=== PATIENT | female | born 1930 | race Caucasian/White ===

== ENCOUNTER 2021-01-12 09:33 | Inpatient (IN) | payer MEDICARE, OTHER ==
[~2021-01-12] VITALS: Ht 167.6 cm; Wt 61.2 kg
[~2021-01-12 09:33] MED LIST: ACETAMINOPHEN325 M1 PO; LEVOTHYROXINE100 MCG PO; LIDODERM700 MG TOP; NORCO 5-325 TA1 EACH PO
--- NOTE | 2021-01-12 14:19 | NUR ---
STOPPED TO SEE PATIENT BUT SHE IS IN OR.
--- NOTE | 2021-01-12 14:33 | NUR ---
01/12/21 1433 Carol Edwards 1428- PT ARRIVES TO PACU NONAROUSABLE TO NOXIOUS STIMULI. RESP EVEN AND UNLABORED. OXYGEN SAT HIGH 90'S TO 100% ON 6L VIA MASK. ICE PACK APPLIED TO PT'S LEFT HIP WITH DRESSING IN BETWEEN SKIN AND ICE PACK.
--- NOTE | 2021-01-12 15:15 | NUR ---
PT ARRIVED BACK FROM [facility] VIA BED. THIS RN RECEIVED REPORT FROM NIKI MERA. PT AWAKE ON ROOM AIR AND STATES THAT SHE HAS NO PAIN AT THIS TIME. 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 PT FORGETFUL, PT STATES THAT THIS IS NORMAL FOR HER PITT CATHETER IN PLACE AND FLUIDS STARTED. SLIGHT SHADOWING ON DRESSING
--- NOTE | 2021-01-12 16:23 | NUR ---
THIS RN IN PTS ROOM TO DO PTS POST OPP CHECK. PT STILL CONFUSED AND FORGETFUL IF HER DOG CAN COME IN OR NOT. PT ALSO FIXATED ON GETTING HER CHARGNING CABLE. PT STATES THAT SHE HAS NO PAIN AND THE SHADOWING ON HER APICOAT DRESSING HAS NOT CHANGED
[2021-01-12] MEDS ORDERED: BUFFERIN 325 M325 MG PO (17:08)
--- NOTE | 2021-01-12 17:08 | NUR ---
MED REC COMPLETE
--- NOTE | 2021-01-12 17:24 | EKG ---
[facility] [address] [facility] [place], [place] [address] Signed Normal sinus rhythm Minimal voltage criteria for LVH, may be normal variant Cannot rule out Anterior infarct , age undetermined Abnormal ECG No previous ECGs available Confirmed by MONE MARK DO ([id number]) on 01/12/2021 5:24:09 PM Electronically Signed By: MONE MARK DO 01/12/21 1724 PATIENT NAME: JENNIFER MALIN Electrocardiogram DATE OF : [birth year] PHYSICIAN: MONE MARK DO REPORT #: [id number] REPORT IS CONFIDENTIAL AND NOT TO BE RELEASED WITHOUT AUTHORIZATION
--- NOTE | 2021-01-12 17:25 | NUR ---
Per telephone order Dr Callahan, begin ASA EC 325mg BID tonight
--- NOTE | 2021-01-12 17:29 | NUR ---
THIS RN IN PTS ROOM TO DO PTS POST OPP CHECK. PT STATES THAT HER PAIN IS WELL CONTROLLED AND THAT SHE IS READY FOR SOME DINNER. PT HAS REGAINED FEELING UP TO HER HIPS AT THIS TIME AFTER RECIEVEING A SPINAL FOR SURGERY. PT STILL CONFUSED AND FORGOT THAT SHE HAD SURGERY TODAY. PTS SHADOWING HAS HAD NO CHANGE, THIS RN OUTLINED SHADOWING
--- NOTE | 2021-01-12 19:13 | NUR ---
RECEIVED REPORT FROM SAMARIA VARELA. pt RESTING IN BED. REPEATING QUESTIONS. NO REQUESTS AT THIS TIME. NO NEW DRAINAGE NOTED ON DRESSING. SCDS, AES, AND HEEL PROTECTORS ON. ICE ON LEFT HIP. CURTAIN OPEN TO THE NURSES STATION. CALL LIGHT WITHIN REACH.
--- NOTE | 2021-01-12 20:30 | NUR ---
IN TO DO ASSESSMENT AND MEDICATIONS. pt VERY TALKATIVE. CONCERNED ABOUT HER DOG. DENIED PAIN WHEN AT REST, SOME GRIMACING WITH MOVEMENT. SCHEDULED MEDICATIONS GIVEN (SEE MAR). NO CHANGES IN DRESSING. pt CONFUSED AT TIMES BUT ORIENTED TO SELF AND PLACE.
--- NOTE | 2021-01-12 22:30 | NUR ---
IN TO GIVE MEDICATIONS. pt WOKE TO VOICE. VERY CONFUSED REQUIRED 20 PLUS MINUTES OF REASSURANCE. REMINDED pt SHE HAD SURGERY AND HER LEFT HIP WOULD BE PAINFUL. pt REMEMBERED THE FALL BUT NOT WHERE SHE WAS. DID TAKE PAIN MEDICATION. NO PAIN AT REST, DOES HAVE PAIN WHEN MOVING. CURTAIN OPEN TO THE NURSES STATION. BED ALARM ON.
--- NOTE | 2021-01-13 00:03 | NUR ---
pt VISUALIZED THROUGH THE DOOR. RESTING IN BED WITH EYES CLOSED, RESPIRATIONS REGULAR AND UNLABORED. BED ALARM ON.
--- NOTE | 2021-01-13 02:41 | NUR ---
IN TO GIVE MEDICATION. pt RATED PAIN 0/10 AND REFUSED PAIN MEDICATION AT THIS TIME. STATED "I'LL ASK FOR IT WHEN IT HURTS" PAIN MANAGEMENT EDUCATION DONE. pt CONFUSED, REPEATING QUESTIONS. NO CHANGE IN ASSESSMENT FROM PRIOR. NO NEW SHADOWING DONE. CALL LIGHT WITHIN REACH. BED ALARM ON. CURTAIN OPEN TO NURSES STATION.
--- NOTE | 2021-01-13 04:22 | NUR ---
pt GESTURING FOR THIS RN. TALKED FOR 30 MINUTES OR SO. pt REMAINS PLEASANTLY CONFUSED. CALL LIGHT WITHIN REACH. BED ALARM ON. CURTAIN OPEN TO NURSES STATION.
--- NOTE | 2021-01-13 06:49 | NUR ---
UPDATED PROVIDER ON pt . OKAY TO KEEP IV OUT AT THIS TIME.
--- NOTE | 2021-01-13 07:59 | NUR ---
Patient awake in bed talking with PARBOILER. Patient is pleasant and disoriented to place and situation. Left hip dressing is CDI, a couple small dry blood spots noted. CMS intact. ALLISON hose in place. No IV at this time. Patient is a 1:1 at this time as she is confused. Close to RN station for observation. Breakfast ordered at this time.
--- NOTE | 2021-01-13 09:20 | NUR ---
Spoke with Julia and discussed placement as she will be NWB x 6 weeks. Pt had difficulty understanding and several times asked why she would need to go to a SNF. Gently reminded several times she has fx of her hip with repair. Sister Jocelyn arrives and we discussed. She also attempted to explain why she needs to go to a SNf. Pt could not decide which SNF she would like to go to. Sister states to go to [facility] first and [facility] second. Called [facility] and they do not have bed availability. Called [facility] and they do have a bed open. Chart faxed and they will let me know if they can accept tomorrow. Spoke with Lori Mayer and she states pt could go tomorrow. Will plan for dc tomorrow if all goes well. Pt updated to above and she again is confused why she would need a SNF. Explained all. Attempted to call sister x 3 to update pt will go to [facility]. She does not have voice mail and does not answer phone.
--- NOTE | 2021-01-13 09:56 | NUR ---
PT SITTING UP IN BED TALKING WITH TAMIA FROM CASE MGMT. VS AND I&O'S HAVE BEEN TAKEN AND DOCUMENTED. PT HAS NO NEEDS OR CONCERNS AT THIS TIME. WILL CONTINUE TO MONITOR.
--- NOTE | 2021-01-13 13:23 | NUR ---
UA sent to lab.
--- NOTE | 2021-01-13 13:30 | NUR ---
Left hip dressing replaced with new Acticoat as patient removed her dressing. Patient has continued confusion and reports she forgot she had surgery. Patient a 1:1 at this time. Bed alarm intact and close to RN station. Left anterior hip incision closed, marcie intact with scant sarosang drainage. New acticoat placed; CDI.
--- NOTE | 2021-01-13 13:38 | NUR ---
PATIENT IN BED AND SLIGHTLY CONFUSED. VITALS AND I&O'S CHARTED. FRESH WATER GIVEN. CALL LIGHT IN REACH. BED ALARM ON. NO FURTHER NEEDS AT THIS TIME.
--- NOTE | 2021-01-13 14:43 | NUR ---
Rachid DC IN WORKING WITH PT. WILL CHECK BACK
--- NOTE | 2021-01-13 16:05 | NUR ---
Patient is doing well at this time visiting with SAMARIA Davis. Close to RN station. No needs at this time.
--- NOTE | 2021-01-13 16:13 | NUR ---
Pt's sister, Shantelle, returned called. UPdated no beds at [facility] and [facility] did accept and will transport. She will call her sister later and see if she understands. Shantelle states she won't return today or tomorrow as she had covid this year and does not tolerate activity. I asked if she would like the phone number for [facility] and she declined. She also states pt does not have any children or relatives other than herself. Updated Ly had asked I call Juanita Jevon her old neighbor and let her know she was going to a SNF. I attempted to call, and left a message on Juanita's answer machine.
--- NOTE | 2021-01-13 17:21 | NUR ---
Patient reports left hip pain. Scheduled Ultram and tylenol provided. Patient remains a 1:1 for close observation. Patient oriented to self.
--- NOTE | 2021-01-13 17:23 | NUR ---
Patient reports left hip pain. Scheduled Ultram and aspirin provided.
--- NOTE | 2021-01-13 18:20 | NUR ---
Patient tolerated dinner well. Pt repositioned in bed, warm blanket provided and lights dimmed to encuorage rest time. Pt reports she is tired and ready to sleep. Bed alarm intact and close to RN station.
--- NOTE | 2021-01-13 19:38 | NUR ---
RECEIVED REPORT FROM DAY SHIFT RN. PATIENT IS RESTING IN BED. RN REMAINS IN ROOM WITH PATIENT 1 ON 1. PATIENT IS CONFUSED. PATIENT DENIES ANY PAIN. NO NEEDS NOTED. CALL LIGHT IN REACH.
--- NOTE | 2021-01-13 21:53 | NUR ---
PATIENT ASSESMENT COMPLTED. PATIENT COMPLAINS OF DISCOMFORT IN YOUR HIP. PATIENTS EVENING MEDICATIONS GIVEN PER ORDER. PATIENT GIVEN SCHEDULED MEDICATION FOR PAIN. PATIENTS DRESSING ON LEFT HIP IS C/D/I. PATIENT IS ON RA. VITALS TAKEN AND RECORDED. PITT EMPTIED. INTAKE AND OUPUT RECORDED. PATIENT HAS SCDS, HEEL PROTECTORS, AND TEDHOSE IN PLACE. ICE PLACED ON LEFT HIP. ICE PLACED ON LEFT HIP. PATIENT IS CONFUSED AND REQUIRES CONTINUOUS REORIENTING. PATIENT HAS RN IN ROOM TO SIT 1 ON 1 WITH PATIENT FOR PATIENT SAFETY. NO OTHER NEEDS NOTED. CALL LIGHT IN REACH.
--- NOTE | 2021-01-13 23:39 | NUR ---
PATIENT IS RESTING IN BED. PATIENT IS RESTING ON AND OFF. WHEN PATIENT AWAKENS SHE REQUIRES REORIENTING THEN FALLS BACK ASLEEP. PATIENT REQUIRES 1 ON 1 STILL, RN REMAINS IN THE ROOM.
--- NOTE | 2021-01-14 01:09 | NUR ---
PATTIENT IS RESTING IN BED. PATIENT REMAINS CONFUSED AND SLEEPING ON AND OFF. PATIENT DENIES ANY PAIN. BONSAI CULTURIST IS IN RROM NOW WITH PATIENT WHO REMAINS A 1 ON 1.
--- NOTE | 2021-01-14 01:57 | NUR ---
UPDATED MARS, BASED ON PROGRESS NOTE 01/13/2021 JONNA GUERRA, REGARDING IV STATUS. PT CONTINUES TO BE CONFUSED TO PLACE, TIME. REQUIRING 1:1 SUPERVISION WITH CONSTANT REASSURING, ORIENTATING.
--- NOTE | 2021-01-14 02:12 | NUR ---
PATIENT HAS BECOME INCREASINGLY AGITATED AND COMBATIVE. PLACED CALL TO MD. RECEIVED TELEPHONE ORDER FOR NEW MEDICATION SEE EMAR. VERIFIED ORDER USING THE READBACK METHOD. RN REMAINS ON THE ROOM WITH PATIENT.
--- NOTE | 2021-01-14 03:41 | NUR ---
PATIENT IS NOW RESTING IN BED. PATIENT IS ABLE TO REST IN 10 MINUTE INCREMENTS. WHEN SHE AWAKENS SHE INSULTS STAFF THEN FALLS BACK ASLEEP. RN REMAINS IN THE ROOM 1
--- NOTE | 2021-01-14 05:02 | NUR ---
PATIENT IS RESTING IN BED WITH EYES CLOSED, RR 16. CALL LIGHT IN REACH. RN REMAINS IN THE ROOM FOR 1 ON FOR PATIENT SAFETY. NO NEEDS NOTED.
--- NOTE | 2021-01-14 05:03 | NUR ---
PATIENT DID NOT REST WELL DURING THIS SHIFT. PATIENT IS ON A REGULAR DIET TOLERATING WELL, NO COMPLAINTS OF NAUSEA. PATIENT HAS A PITT IN PLACE, OUPUT IS QS. PATIENT HAS NO IV AT THIS TIME. PATIENT HAS SCDS AND HEEL PROTECOTRS IN PLACE WHEN PATIENT ALLOWS. PATIENT HAS TEDHOSE ON BILAT LOW EXT. PATIENT IS ON RA. PATIENT HAS DRESSING ON LEFT HIP THAT IS C/D/I. PATIENT ONLY ALLOWS ICE ON HIP SOMTIMES, BUT WHEN SHE GETS UPSET SHE THROWS ICE PACK AT STAFF. PATIENT HAS PT AND CASE MANAGEMENT CONSULT. PATIENT IS NON WEIGHT BEARING ON LEFT LOW EXT. PATIENT IS CONFUSED AND BECOMES AGITATED AT TIMES. PATIENT HAS YELLED AT STAFF AND TRIED TO HIT STAFF. PATIENT IS A 1 ON 1 FOR PATIENT SAFETY.
--- NOTE | 2021-01-14 05:53 | NUR ---
PATIENT IS STILL CONFUSED BUT IS NO LONGER COMBATIVE WITH STAFF. PATIENT REMAINS A 1 ON 1. PATIENT WAS ABLE TO TAKE MORNING MEDICATION PER ORDER. PATIENT REPOSTIIONED IN BED.
--- NOTE | 2021-01-14 07:00 | NUR ---
PATIENT IS RESTING IN BED WITH EYES CLOSED, RR 17. RN REMAINS IN THE ROOM. SOBEIDA INTO SEE PATIENT. UPDATED HER ON PATIENT. DID NOT WAKE PATIENT FOR VITALS MD AWARE.
--- NOTE | 2021-01-14 07:07 | OR ---
[facility] [address], [place] [address] Signed DATE OF OPERATION: 01/12/2021 SURGEON: Edy Callahan MD PREOPERATIVE DIAGNOSIS: Left intertrochanteric hip fracture. POSTOPERATIVE DIAGNOSIS: Left intertrochanteric hip fracture. PROCEDURE PERFORMED: Open reduction and internal fixation of left hip. FINE ARTS TEACHER: None. ANESTHESIA: Spinal. ESTIMATED BLOOD LOSS: 150 mL. IMPLANTS: Synthes 4-hole DHS 135 degrees, 95 mm lag screw and four screws distally. BRIEF HISTORY: Julia is an 89-year-old female, who slipped and fractured her hip. The patient was transferred to the hospital. Radiographs revealed a minimally displaced intertrochanteric hip fracture. Risks and benefits of operative treatment were discussed with her after medical clearance, and she elected to proceed. DESCRIPTION OF PROCEDURE: Once consent was obtained, she was taken to the operating room. After adequate anesthesia, she was placed on the fracture table. The nonoperative leg was placed in a foot horowitz and extended and adducted. The reduction maneuver was performed on the left leg and the image intensifier was brought in. Radiographs showed the hip to be well reduced. The hip was then prepped and draped in a standard sterile fashion. A 4-inch incision was made laterally, carried through skin and IT band and down to the vastus. The vastus was then split longitudinally and the lateral femur was cleared. The 135 DHS guide was then placed on the lateral femur and centered and the guide pin was advanced Electronically Signed By: EDY CALLAHAN MD 01/14/21 0707 PATIENT NAME: JULIA MALNI OPERATIVE REPORT DATE OF : [birth year] REPORT #: [id number] PHYSICIAN: EDY CALLAHAN MD PCP: BRYANT MORALES MD REPORT IS CONFIDENTIAL AND NOT TO BE RELEASED WITHOUT AUTHORIZATION [facility] [address] [place], [place] [address] Signed from the lateral femur across the femoral neck into the head. Good position was ascertained on biplanar fluoroscopy. We then measured it to a 95 and triple reamed it. Once this was completed, the guide pin was left in position and DHS lag screw was placed over it and advanced until it was well-seated in the femoral head. We then placed the four-hole 135 DHS over the screw and impacted until it was flushed with the lateral femur and centered. The four distal screws were then drilled and appropriate length screws were placed. The final radiograph showed good position of the DHS. The screw lengths were appropriate. The lag screw was in good position. The wound was copiously irrigated with antibiotic solution. The fascia was closed using #0 StrataFix, the subcutaneous tissue with #0 StrataFix, and skin with marcie. The wound was then dressed with an Acticoat dressing and she was taken out of traction, taken off the table and taken to the recovery room in satisfactory condition. All sponge, needle, and instrument counts correct. Edy Callahan MD BA/CHERI /[id number] Copies: ~ Electronically Signed By: EDY CALLAHAN MD 01/14/21 0707 PATIENT NAME: KIMOJULIA CAMILA OPERATIVE REPORT DATE OF : [birth year] REPORT #: [id number] PHYSICIAN: EDY CALLAHAN MD PCP: BRYANT MORALES MD REPORT IS CONFIDENTIAL AND NOT TO BE RELEASED WITHOUT AUTHORIZATION
--- NOTE | 2021-01-14 07:22 | NUR ---
Recieved text from Lori Mayer Pa-c, pt will not dc today due to increased fall risk from confusion. [facility] notified.
--- NOTE | 2021-01-14 07:45 | NUR ---
Patient sleeping at this time, respirations even and non labored. Patient has no notable distress. Bed alarm intact, pt close to RN station.
--- NOTE | 2021-01-14 09:27 | NUR ---
PATIENT AWAKE IN BED, OB RN AT BEDSIDE FOR SAFETY. VITALS AND I&OS CHARTED. PITT EMTIED. REFUSED BREAKFAST. PATIENT CONFUSED BUT COOPERATIVE TO VITALS BEING DONE. NO OTHER NEEDS AT THIS TIME
--- NOTE | 2021-01-14 09:30 | NUR ---
This RN attempted and encouraged patient several times to take her scheduled medications; pt refused and requested I leave room at this time. Patient agitated with staff and thinks she is in her apartment. Patient reoriented to place and situation. Patient continues to be a 1:1 and close to RN station.
--- NOTE | 2021-01-14 10:00 | NUR ---
Slade removed per provider order. Catheter tip intact. Patient tolerated well. Shana pad placed at this time. Patient remains a 1:1 at this time.
--- NOTE | 2021-01-14 12:25 | NUR ---
Patient sleeping, respirations even and non labored. No notable distress. Patient remains a 1:1 and close to RN station. Call light within reach.
--- NOTE | 2021-01-14 13:26 | NUR ---
Patient awake, sitting up in bed eating lunch. Patient slept approximately 5hrs. Lunch to patient, lights on and coffee provided. No needs at this time. Close to RN station, bed alarm intact.
--- NOTE | 2021-01-14 15:50 | NUR ---
Notified by RN, pt's granddaughter is in the room and would like a visit. In to room and clarified with visitor she is not the granddaughter as pt has not been and does not have children. Visitor states she is an old neighbor and helps pt when needed. She is Dalia Escoto, a friend the pt had me call yesterday. Pt remains forgetful and is forgetful during our conversation. Dalia is wanting to know who made the decision for pt to go to [facility]. I asked Julia if I may give information to Dalia and she does recognize and states yes. UPdate I attempted to place in T, they do not have rooms. Patient and her sister requested closest SNF to this area which is [facility]. Discussed with Dalia if she does not have POA she is unable to speak for Julia. She is aware of this and states she does not have anything in writing and has helped Julia for a long time. I suggested she call, Shantelle, pts sister for questions. She states she will bring clothing for Julia to use at SNF. pts sister
--- NOTE | 2021-01-14 16:21 | NUR ---
covid swab collected ,sent to [facility] for rapid testing, no complications
--- NOTE | 2021-01-14 16:37 | NUR ---
Patient resting in bed, eyes closed, respirations even and non labored. Patient has no notable distress. Personal supplies and call light within reach. Close to RN station.
--- NOTE | 2021-01-14 16:43 | NUR ---
Received call from Nuha Banks, pt's niece. She states she and pt's nephew have not been able to visit as he has covid and she is on quarantine. She states Shantelle has updated her and she has concerns for Kassie. Updated patient is going to [facility] tomorrow. She states concern as pt has been having increased confusion for some time. She does not feel she will be able to return to [facility]. Pt lives on her SSI and does not own any property or cars. Instructed on how to contact [facility] and phone number given. Requested she call Yue Noel the worker of the day and provide information. Ask for an eval for rn long term care medicaid. They may be able to assist her with placement or a cg. Also notified this is a long process and can take up to 45 days. Nuha states she will contact [facility].
--- NOTE | 2021-01-14 17:47 | NUR ---
Patient awake, alert to self only. Patient reports she is at "[facility]", reorientation provided. Dinner to patient, she is eating well. Recently voided; q/s urine output. Left hip dressing remains CDI. Scd's intact. Patient took medications with dinner without difficulty. Bed alarm intact.
--- NOTE | 2021-01-14 19:20 | NUR ---
PATIENT IS RESTING IN BED WITH EYES CLOSED, RR 16. CALL LIGHT IN REACH. BED ALARM ON FOR SAFETY.
--- NOTE | 2021-01-14 21:20 | NUR ---
V/S AND I&O'S TAKEN AND RECORDED. THIS RIP TAILER AND PRIMARY RN HARRISON HELPED PATIENT UP TO USE THE BEDSIDE COMMODE. PATIENT HAD BOWEL MOVEMENT AND VOIDED. PATIENT IS BACK IN BED. PATIENT TOLERATED GOOD STANDING UP USING WALKER. PATIENT IS TALKATIVE AND SENSIBLE ON COMMNUNICATING WITH US STAFF. BED ALARM ON FOR SAFETY. SCD'S ON.
--- NOTE | 2021-01-14 21:50 | NUR ---
PATIENT ASSISTED TO THE BSC. PATIENT WAS ABLE TO PIVOT TRANSFER W/FWW AND 2PA. PATIENT NEEDED REMINDING TO NOT PUT WEIGHT ON HER LLE. PATIENT WAS BALE TO VOID AND HAD X1 BM. PATIENT IS NOW BACK IN BED RESTING. SCDX IN USE. PATIENTS VITALS TAKEN AND RECORDED. INTAKE AND OUPUT REOCRDED. PATIENT RATES PAIN AT A 5/10. PATIENT GIVEN SCHEDULED PAIN MEDICATION AND HER EVENING MEDICATIONS PER ORDER. PATIENT GIVEN FRESH ICE WATER. PATIENT PROVIDED WITH A WARM BLANKET. PATIENT IS PLEASANTLY CONFUSED. PATIENT IS NOW RESTING IN BED COMPETEING A CROSSWORD PUZZLE. PATIENTS DRESSING ON L HIP IS C/D/I. NO FUTHER NEEDS NOTED. CALL LIGHT IN REACH. BED ALARM ON FOR SAFETY.
--- NOTE | 2021-01-14 22:38 | NUR ---
PATIENT IS RESTING IN BED WITH EYES CLSOED, RR 16. CALL LIGHT IN REACH. BED ALARM ON FOR SAFETY.
--- NOTE | 2021-01-14 23:44 | NUR ---
PATIENT IS RESTING IN BED WITH EYES CLSOED, RR 17. CALL LIGHT IN REACH. BED ALARM ON FOR SAFETY.
--- NOTE | 2021-01-15 01:08 | NUR ---
PATIENT IS RESTING IN BED WITH EYES CLOSED, RR 16. CALL LIGHT IN REACH. BED ALARM ON FOR SAFETY.
--- NOTE | 2021-01-15 02:20 | NUR ---
2 PA UP TO BEDSIDE COMMODE USING WALKER. PATIENT HAD BOWEL MOVEMENT AND URINE. PATIENT IS BACK IN BED. BED ALARM ON FOR SAFETY. SCD,S ON.
--- NOTE | 2021-01-15 02:36 | NUR ---
PATIENT ASSISTED TO THE BSC A 1PA W/FWW. PATIENT WAS ABLE TO VOID AND HAVE LOOSE BM. PATIENT PUT LEGS BACK INTO BED WITHOUT ASSISTANCE. PATIENTS SCDS IN USE. PATIENTS SCHEDULED PAIN MEDICATION GIVEN PER ORDER. PATIENT STATED THAT HER LEG WAS ONLY PAINFUL WITH MOVEMENT. PATIENT PROVIDED WITH FRESH ICE WATER. NO FURTHER NEEDS NOTED. CALL LIGHT IN REACH. BED ALARM ON FOR SAFETY.
--- NOTE | 2021-01-15 03:18 | NUR ---
PATIENT IS RESTING IN BED WITH EYES CLOSED, RR 16. CALL LIGHT IN REACH. BED ALARM ON FOR SAFETY.
--- NOTE | 2021-01-15 04:30 | NUR ---
1-2 PA. PATIENT WAS UP TO BSC. PATIENT IS BACK IN BED. ICE PACK MADE FOR LEFT HIP. BED ALARM ON FOR SAFETY. CALL LIGHT WITHIN REACH.
--- NOTE | 2021-01-15 04:38 | NUR ---
PATIENT ASSSISTED TO THE RESTROOM A 1PA W/FWW. PATIENT WAS ABLE TO TRANSFER TO [facility]. PATIENT WAS ABLE TO VOID. PATIENT IS BACK IN BED RESTING. PATIENT HAS SCDS IN USE. PATIENT PROVIDED WITH ICE PACK TO HIP AND FRESH ICE WATER. NO FURTHER NEEDS NOTED. CALL LIGHT IN REACH. BED ALARM ON FOR SAFETY.
--- NOTE | 2021-01-15 04:43 | NUR ---
PATIENT RESTED WELL THROUGHOUT THE SHIFT. PATIENT IS ON A REGULAR DIET, TOLERATING IT WELL, AND NO COMPLAINTS OF NAUSEA REPORTED. PATIENT IS ON RA. SCDS, TEDHOSE, AND HEEL PROTECTORS IN USE. PATIENT HAS NO IV. PATIENT IS LEFT ARM RESTRICTED. DRESSING PRESENT ON LEFT HIP AND IS C/D/I. PATIENT HAD X2 BMS. PATIENT IS A 1PA W/FWW. PATIENT IS TOE TOUCH WEIGHT BEARING ON LLE. PATIENT IS PLEASANTLY CONFUSED. PATIENT IS EASILY REORIENTED. PATIENTS PAIN HAS BEEN WELL MANAGED WITH SCHEDULED PAIN MEDICATION. PATIENT DOES NOT ALWAYS REMEMBER TO USE THE CALL LIGHT, THEREFORE BED ALARM IS ON FOR SAFETY.
--- NOTE | 2021-01-15 07:15 | NUR ---
Report from Angelic Shepard RN. Patient lying in bed on back. Eyes closed, respirations even and unlabored. Allowed to rest. Call light in reach, bed rails up, bed alarm activated.
[2021-01-15] MEDS ORDERED: TRAMADOL HCL50 MG PO (07:49)
--- NOTE | 2021-01-15 08:49 | NUR ---
ASSIST INTO RECLINER WITH 2 PERSON ASSIST AND WALKER. ASSESSMENT COMPLETED. STATES PAIN IS CURRENTLY 5/10 AT THIS TIME. SCHEDULED MEDICATIONS GIVEN PRESCRIBED. DENIES OTHER NEEDS AT THIS TIME. DID HAVE SOME DIFFICULTY WITH SWALLOWING ONE MEDICATION, USED APPLESAUCE. SHE THEN SWALLOWED IT WITH EASE. DENIES OTHER NEEDS AT THIS TIME. CALL LIGHT IN REACH.
--- NOTE | 2021-01-15 09:00 | NUR ---
Orders completed by Tran Ashley.Orders faxed to Jie at [facility]. Called to confirm orders and grain picker time. Notified by Jie, Rn had noted pt required 1:1 sitter on 01/13 during the night and into the morning of the 01/14. Their policy is the patient needs to be 48 hours without a sitter for safety reasons. They cannot accept this pt until tomorrow. I will update Tran MOREIRA. Pt has cleared mentally and has had a good night. Called family and updated pt will stay today and possibly go to [facility] tomorrow. Received call from friend Juanita and she has spoken with Nuha, pt's niece and will bringing clothing and toiletries to take to the SNF.
--- NOTE | 2021-01-15 11:07 | NUR ---
SITTING IN RECLINER WITH LEGS ELEVATED, EYES SHUT, RESPIRATIONS EVEN AND UNLABORED. ALLOWED TO REST. CALL LIGHT IN REACH, CHAIR ALARM IN PLACE.
--- NOTE | 2021-01-15 13:24 | NUR ---
PT ASLEEP. SAMARIA BARRERA REQUESTED I NOT DISTURB PT AT THIS TIME. WILL FOLLOW
--- NOTE | 2021-01-15 16:55 | NUR ---
Patient verbalizes desire to stay in facility and not another. Informed multiple times throughout day plan of care and becomes very emotional at times. Also verbalizes worry about her pet dog and wanting to see it, but has no one willing to bring it to see her. States she is concerned about not returning home either. Let patient voice her concerns.
--- NOTE | 2021-01-15 18:17 | NUR ---
Concerned about DC plan throughout day today. Pain controlled with scheduled medications. Denies pain when not moving. Pivot transfers to commode with 1-2 person assist and walker. Dressing to left hip intact. Minimal edema to site. Continues to work with PT>
--- NOTE | 2021-01-15 19:21 | NUR ---
RECEIVED REPORT FROM DAY SHIFT RN. PATIENT IS RESTING IN RECLINER. NO NEEDS NOTED. CALL LIGHT IN REACH.
--- NOTE | 2021-01-15 19:30 | NUR ---
IN TO ASST PT UP TO VOID, 1PA FWW AND BACK TO BED, VITALS DONE
--- NOTE | 2021-01-15 20:15 | NUR ---
PATIENT ASSISTED TO THE RESTROOM BY AKHIL. PATIENT IS NOW BACK IN BED RESTING. PATIENT REPORTS 5/10 PAIN. PATIENT GIVEN SCHEDULED PAIN MEDICATION. PATIENTS VITALS TAKEN AND RECORDED. PATIETNS INTAKE AND OUPUT RECORDED. PATIENTS RESTING IN BED WITH SCDS IN USE. ICE PACK PLACED ON LEFT HIP. FRESH ICE WATER PROVIDED. PATIENTS BED ALARM PLACE ON FOR SAFETY. NO FURTHER NEEDS NOTED. CALL LIGHT IN REACH.
--- NOTE | 2021-01-15 23:00 | NUR ---
PATIENT IS RESTING IN BED WITH EYES CLOSED, RR 16. CALL LIGHT IN REACH. AND BED ALARM ON FOR SAFETY.
--- NOTE | 2021-01-16 00:31 | NUR ---
PATIENT IS RESTING IN BED WITH EYES CLSOED, RR 17. CALL LIGHT IN REACH. BED ALARM ON FOR SAFETY.
--- NOTE | 2021-01-16 03:00 | NUR ---
PATIENT ASSISTED TO THE BSC A 1PA W/FWW. PATIENT WAS ABLE TO VOID. PATIENT IS BACK IN BED RESTING. SCDS AND HEEL PROTECOTRS IN USE. PATIENTS HAIR BRUSHED FOR HER. PATIENTS SCHEDULED PAIN MEDICATION GIVEN PER ORDER. PATIENT RATES PAIN AT A 5/10. PATIENT REMAINS PLEASANTLY CONFUSED AND EASY TO REORIENT. NO FURTHER NEEDS NOTED. CALL LIGHT IN REACH. BED ALARM ON FOR SAFETY.
--- NOTE | 2021-01-16 03:05 | NUR ---
PT WAVING, ASKING ABOUT MAIL, RN ALSO CAME TO ROOM, REASSURING PT
--- NOTE | 2021-01-16 06:36 | NUR ---
PATIENT IS RESTING IN BED WITH EYES CLOSED, RR17. CALL LIGHT IN REACH. BED ALARM ON FOR SAFETY.
--- NOTE | 2021-01-16 08:00 | NUR ---
PT ASLEEP IN BED, EYES OPEN UPON THIS RN ENTRANCE. PT SLIGHTLY DISORIENTED TO DATE AND EVENTS. EASILY REORIENTED. REQUESTING TO USE BATHROOM, UP TO BEDSIDE COMMODE W/ FWW 1 PA, L LEG TOE TOUCH. PT REQUIRES FREQUENT CUEING BY THIS RN. PT ABLE TO VOID. ORAL MEDICATIONS TAKEN W/ MIRALAX IN APPLE JUICE, PT TOLERATED WELL. PT REQUESTING MAIL FROM [facility]. AIDE IN FOR MORNING CARES.
--- NOTE | 2021-01-16 09:40 | NUR ---
In to speak with Mariaelena, she is already on the phone with Yissel from [facility]. Mariaelena hands me the phone and I ask who Ashok speaking with. States she is Yissel and is starting the [facility] eval. Asked if she is aware, Juanita Escoto has all the financial infor and is not here yet, but will be in 5 min. Juanita arrives and ask Yissel call her on her phone as she can put to speaker. Juanita will assist with eval as pt has very poor memory.
--- NOTE | 2021-01-16 10:59 | NUR ---
IN TO ASSESS PT. DR. REBOLLEDO IN TO SEE PT. FAMILY FRIEND FROM [facility] ALSO IN ROOM W/ PT BELONGINGS. HEAD TO TOE ASSESSMENT COMPLETE. PT SITTING UP IN CHAIR. ACTICOAT DRSNG TO LEFT HIP C,D,I. LUNG SOUNDS ARE CLEAR. NO EDEMA OR REDNESS NOTED AT SURGICAL SITE. BLE ELEVATED IN CHAIR. ENCOURAGING PO FLUIDS AND INTAKE. PT DENIES PAIN AT REST. NO OTHER NEEDS AT THIS TIME. CALL LIGHT IN REACH.
--- NOTE | 2021-01-16 11:02 | NUR ---
Left message for Jie at [facility], pt's [facility] eval is complete and she can dc whenever they can take her.
--- NOTE | 2021-01-16 11:20 | NUR ---
Faxed Orders, RX, updated PT/OT notes, PASRR, dc summary to [facility]ie [facility].
--- NOTE | 2021-01-16 12:00 | NUR ---
PT SITTING UP IN CHAIR EATING LUNCH. PAIN WELL MANAGED AT REST, PAINFUL W/ ACTIVITY. UP TO 7/10 IN THE LLE. ENCOURAGING PO FLUID INTAKE. CALL LIGHT IN REACH. PT REMAINS ON CHAIR ALARM.
--- NOTE | 2021-01-16 12:30 | NUR ---
Received call from [facility] and orders are approved. Their van will pick pt up at 1430 today and they will bring a wc for pts transport.
--- NOTE | 2021-01-16 14:15 | NUR ---
TRANSPORTATION FROM [facility] HAS ARRIVED. PT UP TO USE COMMODE TO VOID BEFORE LEAVING. ALSO GIVEN PAIN MEDICATION (TRAMADOL/TYLENOL) PRIOR TO DEPARTURE. VSS. BELONGINGS WITH PT. DRESSED. REPORT CALLED TO [facility] SAMARIA DUPREE. PT WHEELED TO [place] BY NURSING STAFF.
== END 2021-01-16 14:15 | DRG 482 ==
LOC: ED 09:33 → MS 11:47
PROVIDERS: ADMIT Specialist; ATTEND Specialist
PROC: 0QS604Z Reposition Right Upper Femur with Internal Fixation Device, Open Approach (ICD-10-PCS; principal; 2021-01-12 12:30)
DX: S72.144A Nondisplaced intertrochanteric fracture of right femur, initial encounter for closed fracture (principal); W18.30XA Fall on same level, unspecified, initial encounter; E03.9 Hypothyroidism, unspecified; Z85.3 Personal history of malignant neoplasm of breast; Z98.890 Other specified postprocedural states; Z20.822 Contact with and (suspected) exposure to COVID-19; Z79.899 Other long term (current) drug therapy; R41.0 Disorientation, unspecified
CPT/HCPCS: 01210; 64447; 71045; 73502; 76942; 80053; 81001; 82652; 85025; 93005; 93010; 96374; 96376; 97110; 97116; 97162; 97530; 99285-25; C1713; C9803; J0690; J0735; J1100; J1630; J1885; J2001; J2250; J2405; J2704; J3010; J3480; J7040; J7121; U0003